=== PATIENT | male | born 1945 | race Caucasian/White ===

== ENCOUNTER 2016-11-15 08:52 | Day surgery (SDC) | payer MEDICARE ==
[~2016-11-15] VITALS: Ht 185.4 cm; Wt 105.0 kg
[2016-11-15] MEDS ORDERED: SODIUM CHLORIDE 0.9% 1,000 ML IV SCH (09:34)
[2016-11-15 09:37] VITALS: BP 169/93
[2016-11-15] MEDS ORDERED: METF500T4 PO (09:37)
[2016-11-15] MEDS ORDERED: GLYB5TAB3 PO (09:37)
[2016-11-15] MEDS ORDERED: OMEP20TA62 PO (09:37)
[2016-11-15] MEDS ORDERED: SIMV5TAB5 PO (09:37)
[2016-11-15] MEDS ORDERED: MIDAZOLAM 1 MG/ML, 5ML ONE (09:56)
[2016-11-15] MEDS ORDERED: NALOXONE 1 MG/ML, 2ML ONE (09:56)
[2016-11-15] MEDS ORDERED: FLUMAZENIL 0.1 MG/1 ML, 5ML ONE (09:56)
[2016-11-15] MEDS ORDERED: FENTANYL PF 100 MCG/2ML ONE (09:56)
[2016-11-15] MEDS ORDERED: OMNIPAQUE 350 MG/ML, 100ML BOTTLE ONE (10:24)
== END 2016-11-15 12:25 | disposition home or self-care (01) ==
LOC: OUT 08:52
PROVIDERS: ATTEND Radiology Radiation Oncology
DX: R59.0 Localized enlarged lymph nodes (principal); C61 Malignant neoplasm of prostate; Z72.89 Other problems related to lifestyle; E11.9 Type 2 diabetes mellitus without complications; Z86.19 Personal history of other infectious and parasitic diseases
CPT/HCPCS: 49180; 72193; 77012; 88305; 88333; 99156; 99157; J2250; J3010; Q9967; J2310

== ENCOUNTER → 2019-12-23 | Outpatient (CLI) | payer MEDICARE, OTHER ==
[~2019-12-23] MED LIST: GLYB5TAB3 PO; METF500T17 PO; OMEP20TA62 PO; OMNIPAQUE 350 MG/ML, 100ML BOTTLE ONE; SIMV5TAB14 PO
[2019-12-23 11:19] LABS: CREATININE 1.13 mg/dL (0.7-1.3)
== END | disposition home or self-care (01) ==
LOC: RAD 10:32
PROVIDERS: ATTEND Urology
DX: C61 Malignant neoplasm of prostate (principal); N28.1 Cyst of kidney, acquired; K44.9 Diaphragmatic hernia without obstruction or gangrene; C41.9 Malignant neoplasm of bone and articular cartilage, unspecified; K57.30 Diverticulosis of large intestine without perforation or abscess without bleeding; R59.0 Localized enlarged lymph nodes
CPT/HCPCS: 36415; 74177; 78306; 82565; A9503; Q9967